=== PATIENT | female | born 1995 | race Caucasian/White ===

== ENCOUNTER 2017-08-04 17:14 | Emergency (ER) | payer OTHER ==
[~2017-08-04] VITALS: Ht 167.6 cm; Wt 73.9 kg
[2017-08-04 18:16] LABS: BASOPHIL % 0.4 % (0-2)
[2017-08-04 18:28] LABS: CALCIUM 8.9 mg/dL (8.5-10.1); CARBON DIOXIDE 28.5 mmol/L (21-32); CHLORIDE SERUM 103 mmol/L (98-107); CREATININE SERUM 0.8 mg/dL (0.6-1.0); GFR1 > 60 mL/min; GLUCOSE SERUM 116 mg/dL (74-106); PLATELET COUNT 103 x10^3mcL (130-400); POTASSIUM SERUM 3.7 mmol/L (3.5-5.1); RED CELL DISTRIBUTION WIDTH 17.1 % (11.5-14.5); SODIUM SERUM 138 mmol/L (136-145)
[2017-08-04 18:32] LABS: ALBUMIN 3.7 g/dL (3.4-5.0); ALKALINE PHOSPHATASE 81 U/L (46-116); ALT/SGPT 51 U/L (14-59); AMYLASE 52 U/L (25-115); AST/SGOT 65 U/L (15-37); BILIRUBIN TOTAL 0.36 mg/dL (0.20-1.00); HDL CHOLESTEROL 45 mg/dL (40-60); LIPASE 138 IU/L (73-393); TOTAL PROTEIN, SERUM 7.7 g/dL (6.4-8.2)
[2017-08-04 18:34] LABS: CHOLESTEROL 98 mg/dL (<200)
[2017-08-04 18:56] VITALS: BP 118/64
== END 2017-08-04 18:56 | disposition left against medical advice (07) ==
LOC: ED 17:14
PROVIDERS: Emergency Medicine
DX: K80.50 Calculus of bile duct without cholangitis or cholecystitis without obstruction (principal); K80.00 Calculus of gallbladder with acute cholecystitis without obstruction; D72.829 Elevated white blood cell count, unspecified
CPT/HCPCS: 36415; 83880; J1885; Q0092

== ENCOUNTER 2018-08-15 16:35 | Emergency (ER) | payer OTHER ==
[~2018-08-15] VITALS: Ht 167.6 cm; Wt 70.8 kg
[2018-08-15 17:25] VITALS: Ht 167.6 cm; Wt 70.8 kg
[2018-08-15 18:30] LABS: PLATELET COUNT 157 x10^3mcL (130-400)
[2018-08-15 18:33] LABS: BASOPHIL % 0 % (0-2); RED CELL DISTRIBUTION WIDTH 15.4 % (11.5-14.5)
[2018-08-15 18:37] LABS: CALCIUM 8.8 mg/dL (8.5-10.1); CARBON DIOXIDE 24.4 mmol/L (21-32); CHLORIDE SERUM 100 mmol/L (98-107); CREATININE SERUM 0.8 mg/dL (0.6-1.0); GFR1 > 60 mL/min; GLUCOSE SERUM 112 mg/dL (74-106); POTASSIUM SERUM 3.5 mmol/L (3.5-5.1); SODIUM SERUM 136 mmol/L (136-145)
[2018-08-15 18:42] LABS: ALKALINE PHOSPHATASE 72 U/L (46-116); ALT/SGPT 24 U/L (14-59); AST/SGOT 14 U/L (15-37); BILIRUBIN TOTAL 0.72 mg/dL (0.20-1.00); LIPASE 68 IU/L (73-393); TOTAL PROTEIN, SERUM 7.9 g/dL (6.4-8.2)
[2018-08-15 19:09] VITALS: BP 111/56
== END 2018-08-15 19:09 | disposition home or self-care (01) ==
LOC: ED 16:35
PROVIDERS: Emergency Medicine
DX: R19.7 Diarrhea, unspecified (principal); R10.84 Generalized abdominal pain; R11.0 Nausea; R35.0 Frequency of micturition
CPT/HCPCS: 36415; Q0162